=== PATIENT | male | born 2005 | race Caucasian/White ===

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

== ENCOUNTER 2023-07-10 12:56 | Emergency (ER) | payer BC, OTHER ==
--- NOTE | 2023-07-10 13:19 | ED ---
General Adult HPI - General Chief complaint: Psychiatric Symptoms Stated complaint: Anxiety Time Seen by Provider: 07/10/23 13:03 Source: patient, family Mode of arrival: ambulatory Limitations: no limitations - History of Present Illness Initial comments: Dictation was produced using [employer] dictation software. please excuse any grammatical, word or spelling errors. Chief Complaint: 17-year-old male presents for anxiety History of Present Illness: Patient is a 17-year-old male presents emergency department for anxiety reaction. Patient's been dealing anxiety recently. Patient has been seeing a counselor however feels like his anxiety is still kind of out of control. He has plans to see a psychiatrist for medication to treat anxiety. Patient states that his hands for a brief moment went numb given a little short of breath and tachycardic. Mother at the bedside states that he has been on edge as of late. Denies any suicidal homicidal ideation. No visual auditory hallucinations. The ROS documented in this emergency department record has been reviewed and confirmed by me. Those systems with pertinent positive or negative responses have been documented in the HPI. All other systems are other negative and/or noncontributory. - Related Data Home Medications Medication Instructions Recorded Confirmed Ashwagandha And Trisha Supplement 1 cap PO DAILY 07/10/23 07/10/23 Folic Acid 1 mg PO DAILY 07/10/23 07/10/23 Magnesium 250 mg PO DAILY 07/10/23 07/10/23 Sardis-3/Dha/Epa/Fish Oil [Sardis-3 1 cap PO DAILY 07/10/23 07/10/23 Fish Oil 1,000 mg Sfgl] Allergies Allergy/AdvReac Type Severity Reaction Status Date / Time amoxicillin trihydrate Allergy Rash/Hives Verified 07/10/23 13:59 [From Augmentin] on entire body potassium clavulanate Allergy Rash/Hives Verified 07/10/23 13:59 [From Augmentin] on entire body Review of Systems ROS Statement: Those systems with pertinent positive or pertinent negative responses have been documented in the HPI. ROS Other: All systems not noted in ROS Statement are negative. Past Medical History Past Medical History: No Reported History History of Any Multi-Drug Resistant Organisms: None Reported Past Surgical History: No Surgical Hx Reported Past Psychological History: No Psychological Hx Reported, Anxiety Smoking Status: Never smoker Past Alcohol Use History: None Reported Past Drug Use History: None Reported General Exam - General Exam Comments Initial Comments: PHYSICAL EXAM: General Impression: Alert and oriented x3, not in acute distress HEENT: Normocephalic atraumatic, extra-ocular movements intact, pupils equal and reactive to light bilaterally, mucous membranes moist. Cardiovascular: Heart regular rate and rhythm Chest: Able to complete full sentences, no retractions, no tachypnea Abdomen: abdomen soft, non-tender, non-distended, no organomegaly Musculoskeletal: Pulses present and equal in all extremities, no peripheral edema Motor: no focal deficits noted Neurological: CN II-XII grossly intact, no focal motor or sensory deficits noted Skin: Intact with no visualized rashes Psych: Normal affect and mood Limitations: no limitations Course Vital Signs 07/10/23 12:59 Temperature 98.3 F Pulse Rate 130 H Respiratory 20 Rate Blood Pressure 136/86 O2 Sat by Pulse 98 Oximetry Medical Decision Making - Medical Decision Making Was pt. sent in by a medical professional or institution (, PA, COMPUTER ANALYST, urgent care, hospital, or alf...) When possible be specific @ -No Did you speak to anyone other than the patient for history (EMS, parent, family, police, friend...)? What history was obtained from this source @ -No Did you review nursing and triage notes (agree or disagree)? Why? @ -I reviewed and agree with nursing and triage notes Were old charts reviewed (outside hosp., previous admission, EMS record, old EKG, old radiological studies, urgent care reports/EKG's, alf records)? Report findings @ -No old charts were reviewed Differential Diagnosis (chest pain, altered mental status, abdominal pain women, abdominal pain men, vaginal bleeding, musculoskeletal, weakness, fever, dyspnea, syncope, headache, dizziness, GI bleed, back pain, seizure, CVA, palpatations, mental health)? @ -Differential Mental Health: Depression, anxiety, bipolar, psychosis, schizophrenia, borderline personality, situational depression, adjustment disorder, behavioral disorder, brain tumor, malingering, substance abuse, encephalopathy, medication reaction, dementia, hypothyroidism, degenerative neurologic disorder, lupus.... This is not meant to be all-inclusive list EKG interpreted by me (3pts min.). @ -My EKG interpretation: Ventricular rate 106, sinus tachycardia, MD interval 149, cures 79, QTc 375. No MD prolongation, no QTC prolongation, no ST or T-wave changes noted. EKG compared to default value showing no changes. Overall, this EKG is unremarkable X-rays interpreted by me (1pt min.). @ -None done CT interpreted by me (1pt min.). @ -None done U/S interpreted by me (1pt. min.). @ -None done What testing was considered but not performed or refused? (CT, X-rays, U/S, labs)? Why? @ -None What meds were considered but not given or refused? Why? @ -None Did you discuss the management of the patient with other professionals (professionals i.e. Dr., PA, COMPUTER ANALYST, lab, RT, psych nurse, clinical social worker, application development specialist, teacher, medical information officer, rn field case manager)? Give summary @ -No Was smoking cessation discussed for >3mins.? @ -No Was critical care preformed (if so, how long)? @ -No Were there social determinants of health that impacted care today? How? (Homelessness, low income, unemployed, alcoholism, drug addiction, transportation, low edu. Level, literacy, decrease access to med. care, prison, rehab)? @ -No Was there de-escalation of care discussed even if they declined (Discuss DNR or withdrawal of care, Hospice)? DNR status @ -No What co-morbidities impacted this encounter? (DM, HTN, Smoking, COPD, CAD, Cancer, CVA, ARF, Chemo, Hep., AIDS, mental health diagnosis, sleep apnea, morbid obesity)? @ -None Was patient admitted / discharged? Hospital course, mention meds given and route, prescriptions, significant lab abnormalities, going to OR and other pertinent info. @ -88-year-old male presents to the emergency department for anxiety reaction. Vital signs shows tachycardia. Rest of vital signs are within acceptable limit s. Patient given oral Xanax. Patient observed emergency department with improvement of his symptoms. Patient will be discharged. He has an appoint with psychiatrist coming up. His heart rate is improved at the bedside. Undiagnosed new problem with uncertain prognosis? @ -No Drug Therapy requiring intensive monitoring for toxicity (Heparin, Nitro, Insulin, Cardizem)? @ -No Were any procedures done? @ -No Diagnosis/symptom? Acute, or Chronic, or Acute on Chronic? Uncomplicated (without systemic symptoms) or Complicated (systemic symptoms)? @ -Anxiety reaction Side effects of treatment? @ -No Exacerbation, Progression, or Severe Exacerbation? @ -No Poses a threat to life or bodily function? How? (Chest pain, [place], [place], pneumonia, PE, COPD, DKA, ARF, appy, cholecystitis, CVA, Diverticulitis, Homicidal, Suicidal, threat to staff... and all critical care pts) @ -yes Disposition Clinical Impression: Acute anxiety Disposition: HOME SELF-CARE Condition: Good Is patient prescribed a controlled substance at d/c from ED?: No Referrals: Neal Ramirez DO [Primary Care Provider] - 1-2 days Time of Disposition: 14:44
[2023-07-10] MEDS: ALPRAZolam 0.5 MG TAB PO STA (13:23)
[2023-07-10 15:47] VITALS: BP 131/76; PULSE 97; RESP 12; TEMP 98.4
== END 2023-07-10 15:48 | disposition home or self-care (01) ==
LOC: EC 12:56
DX: F41.1 Generalized anxiety disorder (principal); R00.0 Tachycardia, unspecified; Z88.0 Allergy status to penicillin; Z88.8 Allergy status to other drugs, medicaments and biological substances
CPT/HCPCS: 93005; 99284

== ENCOUNTER 2024-08-10 20:34 | Emergency (ER) | payer BC ==
--- NOTE | 2024-08-10 20:49 | ED ---
Wound/Laceration HPI - General Chief Complaint: Wound/Laceration Stated Complaint: Right palm injury Time Seen by Provider: 08/10/24 20:45 Source: patient, RN notes reviewed Mode of arrival: ambulatory Limitations: no limitations - History of Present Illness Initial Comments: 19-year-old male presenting for splinter in right hand palm 1 hour ago. States he was working with wood and a piece went into his palm. States he was able to get a large piece of wood out however still feels as though there is a piece of wood in his palm. No active bleeding. Last tetanus less than 5 years ago. No blunt injury or trauma - Related Data Home Medications Medication Instructions Recorded Confirmed Ashwagandha And Trisha Supplement 1 cap PO DAILY 07/10/23 07/10/23 Folic Acid 1 mg PO DAILY 07/10/23 07/10/23 Magnesium 250 mg PO DAILY 07/10/23 07/10/23 [place]-3/Dha/Epa/Fish Oil [[place]-3 1 cap PO DAILY 07/10/23 07/10/23 Fish Oil 1,000 mg Sfgl] Previous Rx's Medication Instructions Recorded Cephalexin [Keflex] 500 mg PO Q12H 5 Days #10 cap 08/10/24 Allergies Allergy/AdvReac Type Severity Reaction Status Date / Time amoxicillin trihydrate Allergy Rash/Hives Verified 08/10/24 20:35 [From Augmentin] on entire body potassium clavulanate Allergy Rash/Hives Verified 08/10/24 20:35 [From Augmentin] on entire body Review of Systems ROS Statement: Those systems with pertinent positive or pertinent negative responses have been documented in the HPI. ROS Other: All systems not noted in ROS Statement are negative. Past Medical History Past Medical History: No Reported History History of Any Multi-Drug Resistant Organisms: None Reported Past Surgical History: No Surgical Hx Reported Past Psychological History: No Psychological Hx Reported, Anxiety Smoking Status: Never smoker Past Alcohol Use History: None Reported Past Drug Use History: None Reported General Exam Limitations: no limitations General appearance: alert, in no apparent distress Head exam: Present: atraumatic, normocephalic, normal inspection Eye exam: Present: normal appearance, PERRL, EOMI. Absent: scleral icterus, conjunctival injection, periorbital swelling Right Elbow exam: Present: normal inspection, full ROM. Absent: tenderness, swelling, abrasion Forearm Wrist exam: Present: normal inspection, full ROM. Absent: tenderness, swelling Hand Wrist exam: Present: full ROM, tenderness, abrasion, erythema. Absent: normal inspection (2 cm abrasion present on ventral aspect of right hand with no active bleeding or palpable foreign body), swelling, laceration, deformity Vascular: Present: normal capillary refill, radial pulse. Absent: vascular compromise Neurological exam: Present: alert, oriented X3 Psychiatric exam: Present: normal affect, normal mood Skin exam: Present: warm, dry, intact, normal color. Absent: rash Course Vital Signs 08/10/24 20:35 Temperature 98.0 F Pulse Rate 69 Respiratory 18 Rate Blood Pressure 141/76 O2 Sat by Pulse 99 Oximetry Medical Decision Making - Medical Decision Making Was pt. sent in by a medical professional or institution (, PA, [facility], urgent care, hospital, or [facility]...) When possible be specific @ -No Did you speak to anyone other than the patient for history (EMS, parent, family, police, friend...)? What history was obtained from this source @ -No Did you review nursing and triage notes (agree or disagree)? Why? @ -I reviewed and agree with nursing and triage notes Were old charts reviewed (outside hosp., previous admission, EMS record, old EKG, old radiological studies, urgent care reports/EKG's, [facility] records)? Report findings @ -No old charts were reviewed Differential Diagnosis (chest pain, altered mental status, abdominal pain women, abdominal pain men, vaginal bleeding, weakness, fever, dyspnea, syncope, headache, dizziness, GI bleed, back pain, seizure, CVA, palpatations, mental health, musculoskeletal)? @ -Differential Musculoskeletal Muscular strain, contusion, ligament sprain, fracture, arthritis, septic arthritis, bursitis, cellulitis, muscle spasm, nerve compression, DVT, arterial occlusion, herpes zoster, electrolyte abnormality, tumor.... This is not meant to be in all inclusive list EKG interpreted by me (3pts min.). @ -None X-rays interpreted by me (1pt min.). @ -X-ray right hand reveals no acute foreign body CT interpreted by me (1pt min.). @ -None done U/S interpreted by me (1pt. min.). @ -None done What testing was considered but not performed or refused? (CT, X-rays, U/S, labs)? Why? @ -None What meds were considered but not given or refused? Why? @ -None Did you discuss the management of the patient with other professionals (professionals i.e. , PA, [facility], lab, RT, psych nurse, social media senior associate, sheet metal shop foreman, teacher, campus police officer, case aide)? Give summary @ -No Was smoking cessation discussed for >3mins.? @ -No Was critical care preformed (if so, how long)? @ -No Were there social determinants of health that impacted care today? How? (Homele ssness, low income, unemployed, alcoholism, drug addiction, transportation, low edu. Level, literacy, decrease access to med. care, intermediate, rehab)? @ -No Was there de-escalation of care discussed even if they declined (Discuss DNR or withdrawal of care, Hospice)? DNR status @ -No What co-morbidities impacted this encounter? (DM, HTN, Smoking, COPD, CAD, Cancer, CVA, ARF, Chemo, Hep., AIDS, mental health diagnosis, sleep apnea, morbid obesity)? @ -None Was patient admitted / discharged? Hospital course, mention meds given and route, prescriptions, significant lab abnormalities, going to OR and other pertinent info. @ -Discharge. 19-year-old male presenting for splinter in right palm 1 hour ago. There is an 2 cm abrasion present on ventral aspect of right hand with no active bleeding or palpable foreign body. Neurovascularly intact. Full range of motion. Tetanus is up-to-date. X-ray right hand reveals no acute foreign body. Wound was thoroughly irrigated and no foreign body was seen or palpated. Patient can be safely discharged home with outpatient prescription for Keflex for antibacterial prophylaxis. Appropriate return precautions and supportive care discussed. Case was discussed with the ED attending Dr. Calderon. Undiagnosed new problem with uncertain prognosis? @ -No Drug Therapy requiring intensive monitoring for toxicity (Heparin, Nitro, Insulin, Cardizem)? @ -No Were any procedures done? @ -No Diagnosis/symptom? @ -Soft tissue foreign body right hand Acute, or Chronic, or Acute on Chronic? @ -Acute Uncomplicated (without systemic symptoms) or Complicated (systemic symptoms)? @ -Uncomplicated Side effects of treatment? @ -No Exacerbation, Progression, or Severe Exacerbation? @ -No Poses a threat to life or bodily function? How? (Chest pain, [place], [place], pneumonia, PE, COPD, DKA, ARF, appy, cholecystitis, CVA, Diverticulitis, Homicidal, Suicidal, threat to staff... and all critical care pts) @ -No Disposition Clinical Impression: Splinter of right hand Disposition: HOME SELF-CARE Condition: Stable Instructions (If sedation given, give patient instructions): Soft Tissue Foreign Body (ED) Additional Instructions: Take Keflex twice daily for 5 days. Please return to the Emergency Department if symptoms worsen or any other concerns. Prescriptions: Cephalexin [Keflex] 500 mg PO Q12H 5 Days #10 cap Is patient prescribed a controlled substance at d/c from ED?: No Referrals: Neal Ramirez DO [Primary Care Provider] - 1-2 days Time of Disposition: 22:13
--- NOTE | 2024-08-10 21:06 | XR ---
EXAMINATION TYPE: XR hand complete RT DATE OF EXAM: 08/10/2024 9:02 PM COMPARISON: None. CLINICAL INDICATION: Male, 19 years old with history of foreign body right hand, pain TECHNIQUE: Frontal, lateral and oblique images of the right hand are obtained. FINDINGS: There is no acute fracture/dislocation evident in the right hand. The joint spaces in the right hand appear within normal limits. The overlying soft tissue appears unremarkable. No radiopaqu e foreign body identified. Correlate clinically. IMPRESSION: There is no acute fracture or dislocation in the right hand. [facility], , 08/10/2024 9:04 PM
[2024-08-10] MEDS: BACITRACIN OINT 1 EACH PACKET TOPICAL ONE (22:19)
[2024-08-10 23:06] VITALS: BP 135/75; PULSE 77; RESP 16; TEMP 98.1
== END 2024-08-10 22:21 | disposition home or self-care (01) ==
LOC: EC 20:34
DX: S60.551A Superficial foreign body of right hand, initial encounter (principal); Z88.0 Allergy status to penicillin; Z88.8 Allergy status to other drugs, medicaments and biological substances; W45.8XXA Other foreign body or object entering through skin, initial encounter
CPT/HCPCS: 99283